=== PATIENT | female | born 1955 | race Caucasian/White ===

== ENCOUNTER 2017-04-21 17:20 | Emergency (ER) | payer OTHER ==
[~2017-04-21] VITALS: Ht 157.5 cm; Wt 69.8 kg
[~2017-04-21 17:20] MED LIST: ADVAIR HFA 1112 UNIT IH; ALEVE220 M1 PO; BENAZEPRIL HCL10 MG PO; BENEFIBER98 GM; BENICAR40 MG PO; COMBIVENT IH; DOXYCYCLINE 10100 M1 PO; DYAZIDE PO; EFFEXOR XR75 MG PO; MAXIDE PO; MEDROLDOSEPACK; MIRALAX255 GM; MUCINEX600 MG PO; NICOTINE TRANSD21 M1 TD; NORCO 5-325 TA1 EACH PO; PREDNISONE 10 M10 M1 PO; ROBITUSSIN ALL118 ML PO; SYMBICORT160 MCG/4. INH; ULTRAM 50MG TAB50 MG PO; VENTOLIN HFA INH8 GM INH; XANAX XR1 MG PO; ZOLOFT100 MG PO
[2017-04-21] MEDS ORDERED: PRIMIDONE50 MG PO (17:46)
[2017-04-21] MEDS ORDERED: BUSPIRONE HCL10 MG PO (17:47)
[2017-04-21] MEDS ORDERED: LIPITOR 20 MG T20 M1 PO (17:48)
[2017-04-21] MEDS ORDERED: ZYPREXA2.5 MG PO (17:48)
[2017-04-21] MEDS ORDERED: ARICEPT10 MG PO (17:49)
[2017-04-21] MEDS ORDERED: SENNA-DOCUSATE1 EACH PO (18:45)
[2017-04-21] MEDS ORDERED: NAPROSYN500 MG PO (18:45)
[2017-04-21] MEDS ORDERED: NORCO 5-325 TA1 EACH PO (18:45)
[2017-04-21 19:00] VITALS: BP 142/92
== END 2017-04-21 19:58 | disposition home or self-care (01) ==
LOC: ER 17:20
DX: S92.332A Displaced fracture of third metatarsal bone, left foot, initial encounter for closed fracture (principal); J44.9 Chronic obstructive pulmonary disease, unspecified; I10 Essential (primary) hypertension; F41.9 Anxiety disorder, unspecified; F32.9 Major depressive disorder, single episode, unspecified; F17.210 Nicotine dependence, cigarettes, uncomplicated; Z88.1 Allergy status to other antibiotic agents; Z90.49 Acquired absence of other specified parts of digestive tract; Z90.89 Acquired absence of other organs; X50.1XXA Overexertion from prolonged static or awkward postures, initial encounter; Y93.89 Activity, other specified; Y92.89 Other specified places as the place of occurrence of the external cause; Y99.8 Other external cause status

== ENCOUNTER 2018-09-17 20:06 | Inpatient (IN) | payer OTHER ==
[~2018-09-17] VITALS: Ht 157.5 cm; Wt 58.6 kg
[~2018-09-17 20:06] MED LIST changes: +ARICEPT10 MG PO; +BUSPIRONE HCL10 MG PO; +LIPITOR 20 MG T20 M1 PO; +NAPROSYN500 MG PO; +PRIMIDONE50 MG PO; +SENNA-DOCUSATE1 EACH PO; +ZYPREXA2.5 MG PO
[2018-09-17 20:08] VITALS: BP 116/76
[2018-09-17 21:14] LABS: CALCIUM 9.2 mg/dL (8.5-10.1); CREATININE 2.1 mg/dL (0.6-1.0)
[2018-09-17 21:20] LABS: POTASSIUM 2.2 mmol/L (3.5-5.1)
[2018-09-17 22:33] LABS: HEMATOCRIT 34.9 % (37.0-47.0); HEMOGLOBIN 11.8 gm/dL (12.0-15.0); MCH 31.1 pg (26.0-34.0); MCHC 33.9 g/dL (28.0-37.0); MCV 91.7 fL (80.0-100.0); RBC 3.8 mil/uL (4.20-5.00); RDW 14.4 % (10.5-14.5); WBC 8.7 thou/uL (4.0-11.0)
[2018-09-17 22:40] VITALS: BP 92/69
--- NOTE | 2018-09-17 22:40 | NUR ---
REPORT IS GIVEN TO CAROLINE ERNANDEZ .
[2018-09-17 23:05] VITALS: BP 96/65
[2018-09-18 01:29] VITALS: BP 112/72
--- NOTE | 2018-09-18 03:21 | NUR ---
new admit for hypokalemia and hypomagnesis. patient having pottassium replaced and magnessium replaced this shift. patient had loose stools this shift. patient ambulates with a cane with steady gaits. patient needs minimum assistance with adl, bed mobility, transfer and toileting. patient had an episode of incontines pericare and barrier cream applied as needed. patient was short of air this shift, new order of breathing treatment and 02 1l. patient denied pain or discomfort. patient had high anxiety prn xanax given. patient in bed asleep at this time breathing regular and unlaboured.
[2018-09-18 04:18] VITALS: BP 112/67
[2018-09-18 08:00] VITALS: BP 108/72
--- NOTE | 2018-09-18 09:02 | EKG ---
[address] [address] ELECTROCARDIOGRAM REPORT Name: NINI ARROYO Room #: 453-P ADM IN M.R.#: [id number] ������������������ Admission: 09/17/18 ������������������ Attend Phys: Teodoro Edwards Discharge: ������������������ Date of : 53 Report #: [id number] ����������������������������������������������������������������� [id number] THIS REPORT FOR: //name// [facility] ED Test Date: 2018-09-17 Test Time: 20:19:55 Pat Name: NINI ARROYO Department: Room: [facility] Gender: F Emergency Communications Officer: MONICA : 1955 Requested By: Tania Wetzel Order Number: [id number] MD: Balta Sierra Measurements Intervals [place] Rate: 87 P: 69 IN: 167 QRS: 43 QRSD: 93 T: 57 QT: 370 QTc: 445 Interpretive Statements Sinus rhythm Nonspecific ST segment abnormalities Compared to ECG 10/15/2015 17:06:27 Atrial abnormality no longer present Electronically Signed On 09-18-2018 9:02:24 CDT by Balta Sierra [email or web address] ��������������������������������������������� <ELECTRONICALLY SIGNED> ���������������������������������������� By: Balta Sierra MD ��������������������������������������������� 09/18/18901 18 18 Balta Sierra MD /OZZY
[2018-09-18 09:06] LABS: CALCIUM 8.7 mg/dL (8.5-10.1); MAGNESIUM 1.4 mg/dL (1.8-2.4)
[2018-09-18 09:08] LABS: POTASSIUM 2.6 mmol/L (3.5-5.1)
[2018-09-18 15:00] VITALS: BP 100/58
--- NOTE | 2018-09-18 18:44 | NUR ---
Assumed care of patient at 0700. Patient awake in bed, c/o IV pain with potassium infusion. Rate slowed, no other concerns. On/off 2L NC for desats with activity. Up to bathroom several times with urinary urgency, loose stools. Electrolytes replaced as ordered. CT abd/pelvis completed. Continue to monitor.
[2018-09-18 20:03] LABS: MAGNESIUM 3.3 mg/dL (1.8-2.4); POTASSIUM 3.1 mmol/L (3.5-5.1)
[2018-09-18 20:12] VITALS: BP 115/56
[2018-09-19 03:45] VITALS: BP 117/78
[2018-09-19 04:54] LABS: HEMATOCRIT 31.6 % (37.0-47.0); HEMOGLOBIN 10.5 gm/dL (12.0-15.0); MCH 31.1 pg (26.0-34.0); MCHC 33.2 g/dL (28.0-37.0); MCV 93.5 fL (80.0-100.0); RBC 3.38 mil/uL (4.20-5.00); RDW 14.7 % (10.5-14.5); WBC 8.1 thou/uL (4.0-11.0)
[2018-09-19 05:11] LABS: ALBUMIN 2.6 g/dL (3.4-5.0); CALCIUM 8.6 mg/dL (8.5-10.1); CREATININE 1.8 mg/dL (0.6-1.0); POTASSIUM 3.2 mmol/L (3.5-5.1); TOTAL BILIRUBIN 0.2 mg/dL (<0.1-1.0); TOTAL PROTEIN 5.1 g/dL (6.4-8.2)
--- NOTE | 2018-09-19 06:10 | NUR ---
PATIENT IS AOX4 AND WAS ABLE TO GET SOME SLEEP THIS SHIFT. PT WALKED TO THE BATHROOM SEVERAL TIMES AND HAS STEADY GAIT. PATIENT'S K+ IS STILL BEING REPLACED. PATIENT IS PROGRESSING TOWARDS DISCHARGE GOALS.
[2018-09-19 07:20] VITALS: BP 103/59
--- NOTE | 2018-09-19 12:55 | CRIT ---
[facility] [place] [address] CRITICAL CARE NOTE Name: NINI ARROYO Room #: 453-P ADM IN M.R.#: [id number] Admission: 09/17/18 ������������������ Attend Phys: Teodoro Edwards Discharge: ������������������ Date of : 53 Report #: [id number] THIS REPORT FOR: //name// CC: Robbi Edwards DATE OF SERVICE: 09/18/2018 GI CONSULT: HISTORY OF PRESENT ILLNESS: The patient is a very pleasant 63-year-old female whom I have been asked to see for further evaluation because of 3 weeks of dyspepsia, nausea and vomiting, epigastric pain, and black stools intermittently. She denies dysphagia. She has no problem swallowing or pain when she swallows. She denies gastroesophageal reflux symptoms. She denies other GI symptoms except for some mild epigastric pain. Her medical history is well outlined in the chart, but includes hypertension, COPD, depression, anxiety. MEDICATION: Her medication list is also listed which includes albuterol, Xanax, Lotensin, Zoloft, Symbicort, primidone, buspirone, Lipitor, Zyprexa, Aricept. She has had medical history consistent with cholecystectomy, appendectomy, hypertension, anxiety, COPD, depression. She denies significant alcohol consumption currently, but did drink prior to 5 years ago. She smokes a pack a day for 50 years, currently and is currently smoking. FAMILY HISTORY: Negative for inflammatory bowel disease or colon cancer. REVIEW OF SYSTEMS: Negative for weight loss, weakness or fatigue. She denies head, eyes, ears, nose or throat complaints. She denies chest pain, chest palpitation, chest pressure, cough, shortness of breath, wheezing, genitourinary, musculoskeletal or neuropsychiatric complaints beyond that mentioned above. PHYSICAL EXAMINATION: GENERAL: The patient is afebrile. VITAL SIGNS: Stable. HEENT: Nonicteric. NECK: No JVD, thyromegaly or bruits. CARDIOVASCULAR: Regular. LUNGS: Clear anteriorly, but diminished. ABDOMEN: Soft, nondistended, nontender. Some mild epigastric discomfort to deep palpation. No Zapata sign. No stigmata of chronic liver disease. No abnormal masses or bruits. EXTREMITIES: Deferred. [address] [address] CRITICAL CARE NOTE Name: NINI ARROYO TABATAH Room #: [facility] IN .R.#: [id number] Admission: 09/17/18 ������������������ Attend Phys: Teodoro Edwards Discharge: ������������������ Date of : 53 Report #: [id number] NEUROLOGIC: Deferred. RECTAL: Deferred. PERTINENT LABORATORY DATA: Include hemoglobin 11.8, MCV 91.7, RDW of 14.4, platelet count 176. White count 8.7. Chemistry notable for sodium 141, potassium 2.2, creatinine 2.1, magnesium 1.5, glucose 105. X-ray reveals, pending CT scan of the abdomen and pelvis. In summary, the patient has mild anemia, dyspepsia, nausea and vomiting, which all may be compatible with gastritis or peptic ulcer disease. Other considerations include gastric dysmotility or malignancy. PLAN: We will proceed with CT of the abdomen and pelvis and upper endoscopy electively probably on Thursday. I appreciate the opportunity to participate in her care. At this point, I would continue full liquid diet and advance only as tolerated. ��������������������������������������������� <ELECTRONICALLY SIGNED> ���������������������������������������� By: Stuart Robbins MD ��������������������������������������������� 09/19/18 1255 1031 0505 Stuart Robbins MD /nt
[2018-09-19 15:11] VITALS: BP 104/56
--- NOTE | 2018-09-19 17:16 | NUR ---
PT A&OX4, VSS, NO SIGNS OF DISTRESS, DENIES PAIN. PT HAS BEEN RESTING IN BED, CALL LIGHT WITHIN REACH, BED IN LOWEST POSITION. PT IS SCHEDULED FOR EGD 09/20/18. WILL CONTINUE TO MONITOR.
[2018-09-19 19:32] VITALS: BP 107/71
--- NOTE | 2018-09-20 04:04 | NUR ---
PATIENT IS ALERT AND ORIENTED X 4 AND WAS ABLE TO GET SOME SLEEP THIS SHIFT. PATIENT HAD NO COMPLAINTS THIS SHIFT. PT HAD FREQUENT TRIPS TO THE BATHROOM. GAIT WAS STEADY WITH SB ASSIST. PATIENT CALLS FOR HELP NEEDED. PATIENT IS PROGRESSING TOWARDS DISCHARGE GOALS.
[2018-09-20 04:11] LABS: HEMATOCRIT 30.9 % (37.0-47.0); HEMOGLOBIN 10.2 gm/dL (12.0-15.0); MCH 31.2 pg (26.0-34.0); MCHC 33.2 g/dL (28.0-37.0); MCV 94.2 fL (80.0-100.0); RBC 3.28 mil/uL (4.20-5.00); RDW 14.9 % (10.5-14.5); WBC 7.1 thou/uL (4.0-11.0)
[2018-09-20 04:23] LABS: ALBUMIN 2.5 g/dL (3.4-5.0); CALCIUM 8.5 mg/dL (8.5-10.1); CREATININE 1.7 mg/dL (0.6-1.0); POTASSIUM 3.4 mmol/L (3.5-5.1); TOTAL BILIRUBIN 0.2 mg/dL (<0.1-1.0); TOTAL PROTEIN 4.5 g/dL (6.4-8.2)
[2018-09-20 04:48] VITALS: BP 133/67
[2018-09-20 08:00] VITALS: BP 145/79
[2018-09-20 12:00] VITALS: BP 131/69
--- NOTE | 2018-09-20 14:34 | NUR ---
PT ADMITTED RELATED TOHYPOKALEMIA, HYPOMAGNES,ALEXANDR. CM REVIEWED CHART AND SPOKE WITH CARE TEAM. CM MET WITH PT AT BEDSIDE THIS DAY. PT IS A&O X4. CM ROLE INTRODUCED. PT INDICATED SHE LIVES IN A HOUSE WITH HER SPOUSE WITH 5 STEPS TO ENTER AND 6 STEPS INSIDE. 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 PT INDICATED SHE HAD USED A CANE TO ASSIST WITH MOBILITY AUTO HAULER. PT INDICATED SHE ANTICIPATES RETURNING HOME ONCE MEDICALLY STABLE. CM TO FOLLOW INDICATED WITH DC PLANNING.
[2018-09-20] MEDS ORDERED: FLORANEX GRANU1 EACH PO (14:50)
[2018-09-20] MEDS ORDERED: NICOTINE TRANSD21 M1 TRANSDERM (14:50)
[2018-09-20] MEDS ORDERED: ACETAMINOPHEN325 M1 PO (14:50)
[2018-09-20 16:32] VITALS: BP 131/69
--- NOTE | 2018-09-20 16:43 | NUR ---
ASSUMED CARE 0700. DENIES PAIN, VSS, EGD COMPLETED TODAY. DISCHARGE HOME TODAY.
--- NOTE | 2018-09-21 16:06 | PATH ---
[facility] [address] [place] [address] PATHOLOGY RPT PROCEDURE Name: JENRAJNINIMONICA MAYS Room #: 453-P DIS IN M.R.#: [id number] ������������������ Admission: 09/17/18 ������������������ Date of : 53 Discharge: 09/20/18 Report #: [id number] Path Case #: [id number] [facility] Accession Number: [id number] . 01 Material submitted: . stomach - BX STOMACH . 01 Clinical history: . Pre-OP DX: Abdominal pain, nausea with vomiting, dysphagia Post-OP DX: Schatzki's ring, hiatal hernia, gastritis . 02 Diagnosis: Gastric mucosa, stomach, endoscopic biopsy: - Mild reactive gastropathy. - Negative for intestinal metaplasia or atrophy. - Negative for Helicobacter pylori (properly controlled immunohistochemical stain performed). (IUV:omar; 09/21/2018) MBBrent/09/21/2018 . 02 Electronically signed: . Swetha Marcus MD, Pathologist NPI- [id number] . 01 Gross description: . Received in formalin labeled "Nini Rios, BX stomach," are 5 segments of vargas soft tissue measuring 1.2 x 0.9 x 0.3 cm in aggregate dimensions and ranging from 0.2 to 0.4 cm in maximum dimension. The specimen is submitted entirely in cassette A1. (TSD; 09/20/2018) TOB/TOB . 02 Pathologist provided ICD-10: K31.9 . 02 CPT . 670828, M82620 Specimen Comment: A courtesy copy of this report has been sent to Specimen Comment: [phone], , . Specimen Comment: Report sent to ,DR REECE / DR WATERS Performed at: [address], [place], [place] [id number] MD Ganesh Feliciano MD Phone: [phone] Performed at: [address] [id number] [address] [address] PATHOLOGY RPT PROCEDURE Name: KATELYNN RIOSMONICA MAYS Room #: 453-P DIS IN M.R.#: [id number] ������������������ Admission: 09/17/18 ������������������ Date of : 53 Discharge: 09/20/18 Report #: [id number] Path Case #: [id number] MD Swetha Marcus MD Phone: [phone]
--- NOTE | 2018-09-21 16:19 | P ---
[facility] [place] [address] PROCEDURE REPORT Name: NINI ARROYO Room #: 453-P [facility] IN M.R.#: [id number] Admission: 09/17/18 ������������������ Attend Phys: Teodoro Edwards Discharge: 09/20/18 ������������������ Date of : 53 Report #: [id number] THIS REPORT FOR: //name// CC: Robbi Romero DO Teodoro Edwards INPATIENT UPPER ENDOSCOPY BRIEF HISTORY: The patient is a 63-year-old woman who was admitted with nausea, vomiting, epigastric pain, solid food dysphagia and inability to eat with hypokalemia and acute kidney injury. PREOPERATIVE DIAGNOSES: Abdominal pain, nausea, vomiting and dysphagia. POSTOPERATIVE DIAGNOSES: 1. Moderate erythematous antral gastritis. 2. Small 2-cm sliding-type hiatus hernia. 3. Schatzki ring. MEDICATIONS: Deep sedation with propofol per anesthesia. SPECIMEN: Biopsies of gastritis. ESTIMATED BLOOD LOSS: 3 mL. PROCEDURE: EGD with biopsy and Magaña dilation. FINDINGS: Prior to propofol sedation, the procedure of upper endoscopy and dilation was discussed with the patient as well as potential risks and its complications. She indicates she understands and desires to proceed. DESCRIPTION OF PROCEDURE: With the patient in the left lateral decubitus position, the Olympus video endoscope was inserted in the cervical esophagus under direct vision without difficulty. Examination of this organ through its entire length revealed normal esophageal mucosa down to the squamocolumnar junction. The squamocolumnar junction was inspected. A small 2-cm sliding-type hiatus hernia was seen. The mucosa in the hernia was unremarkable. In addition, intermittently, a mild Schatzki ring was seen. There was no evidence of tight stricturing or mass lesions of the esophagus. The scope was advanced fully into the stomach, which was examined on end view as well as retroflexed views. There was a pattern of a diffuse gastritis. No ulcers or erosions were seen. No mass lesions were seen. Upon retroflexion, the small hiatus hernia was seen. No mass lesions were seen. The mucosa in the proximal stomach was normal. The scope was advanced across the pylorus, which was normal. The scope was advanced to full length down the duodenal sweep and actually across the ligament of Treitz and into the first segment into the jejunum which was normal. [address] [address] PROCEDURE REPORT Name: NINI ARROYO Room #: 453-P [facility] IN M.R.#: [id number] Admission: 09/17/18 ������������������ Attend Phys: Teodoro Edwards Discharge: 09/20/18 ������������������ Date of : 53 Report #: [id number] At that point, scope was slowly withdrawn and careful circumferential views were obtained. Upon withdrawal of the scope, we got good views of both the major duodenal papilla and the minor papilla; both were normal. Scope was withdrawn. The patient tolerated the procedure well. Due to the findings of a ring and her complaints of dysphagia, she was dilated with passage of a 50-Chinese Magaña dilator. There was no resistance with passage of the dilator. The patient tolerated the procedure well. DISPOSITION: The patient with several weeks of nausea, vomiting, solid food dysphagia and epigastric pain with minimal endoscopic findings. I do not see significant peptic mucosal disease. There is no evidence of neoplastic disease. She did report she also had some diarrhea and she may have had an acute gastroenteritis which has resolved, with sequelae of above-mentioned symptoms persisting. At this point, we would treat symptomatically. As noted, her CT was nondiagnostic. PPI will be reasonable. Zofran for nausea and vomiting would be reasonable. We will advance diet at this time. Discharge when nausea and vomiting are controlled and eating well would be reasonable from a GI standpoint. ��������������������������������������������� <ELECTRONICALLY SIGNED> ���������������������������������������� By: Brandon Antonio MD ��������������������������������������������� 09/21/18 1619 1045 2332 Brandon Antonio MD /nt
== END 2018-09-20 18:23 | disposition home or self-care (01) | DRG 684 ==
LOC: ER 20:06 → EROBS 21:51 → 4W 21:51 → ENTRNSPT 09-20 17:11 → 4W 09-20 18:23
PROVIDERS: Hospitalist; Nurse Practitioner Family; Physician Assistant; ADMIT Hospitalist
PROC: 0DB68ZX Excision of Stomach, Via Natural or Artificial Opening Endoscopic, Diagnostic (ICD-10-PCS; principal; 2018-09-20)
PROC: 0D758ZZ Dilation of Esophagus, Via Natural or Artificial Opening Endoscopic (ICD-10-PCS; principal; 2018-09-20)
DX: N17.0 Acute kidney failure with tubular necrosis (principal); E87.6 Hypokalemia; I10 Essential (primary) hypertension; J44.9 Chronic obstructive pulmonary disease, unspecified; F41.9 Anxiety disorder, unspecified; F32.9 Major depressive disorder, single episode, unspecified; K29.70 Gastritis, unspecified, without bleeding; K44.9 Diaphragmatic hernia without obstruction or gangrene; K22.2 Esophageal obstruction; E83.42 Hypomagnesemia; F17.210 Nicotine dependence, cigarettes, uncomplicated; Z90.49 Acquired absence of other specified parts of digestive tract; Z79.899 Other long term (current) drug therapy; Z71.6 Tobacco abuse counseling; Z88.8 Allergy status to other drugs, medicaments and biological substances
CPT/HCPCS: 10045; 62110; 62900; 70005

== ENCOUNTER 2019-02-26 16:49 | Inpatient (IN) | payer OTHER ==
[~2019-02-26] VITALS: Ht 154.9 cm; Wt 54.4 kg
[~2019-02-26 16:49] MED LIST changes: +ACETAMINOPHEN325 M1 PO; +FLORANEX GRANU1 EACH PO; +NICOTINE TRANSD21 M1 TRANSDERM
[2019-02-26 16:58] VITALS: BP 133/79
[2019-02-26] MEDS ORDERED: KLOR-CON 1010 MEQ PO (17:07)
[2019-02-26] MEDS ORDERED: MAGOX 400400 MG PO (17:07)
[2019-02-26 17:19] LABS: ABSOLUTE NEUTROPHILS 10.5 thou/uL (1.4-8.2); BASOPHILS 0.4 % (0.0-2.0); EOSINOPHILS 0.7 % (0.0-3.0); HEMATOCRIT 30.7 % (37.0-47.0); HEMOGLOBIN 10.2 gm/dL (12.0-15.0); LYMPHOCYTES 13.5 % (24.0-44.0); MCH 32.1 pg (26.0-34.0); MCHC 33.2 g/dL (28.0-37.0); MCV 96.7 fL (80.0-100.0); MONOCYTES 4.1 % (1.0-8.0); PLATELET COUNT 300 thou/uL (150-400); POLYS 81.3 % (36.0-66.0); RBC 3.18 mil/uL (4.20-5.00); RDW 14.7 % (10.5-14.5); WBC 12.9 thou/uL (4.0-11.0)
[2019-02-26 17:39] LABS: ANION GAP 15 mmol/L (7-16); BUN 17 mg/dL (7-18); CALCIUM 8.5 mg/dL (8.5-10.1); CHLORIDE 104 mmol/L (98-107); CO2 20 mmol/L (21-32); CREATININE 3.7 mg/dL (0.6-1.0); GLUCOSE 107 mg/dL (74-106); MAGNESIUM 1.5 mg/dL (1.8-2.4); SODIUM 139 mmol/L (136-145); TROPONIN-I <0.06 ng/mL (<0.06)
--- NOTE | 2019-02-26 18:06 | EKG ---
[address] [address] ELECTROCARDIOGRAM REPORT Name: NINI ARROYO Room #: 170-9 ADM IN M.R.#: [id number] Admission: 02/26/19 Attend Phys: Teodoro Edwards Discharge: Date of : 53 Report #: [id number] THIS REPORT FOR: //name// [facility] ED Test Date: 2019-02-26 Test Time: 17:12:39 Pat Name: NINI ARROYO Department: Room: 170 Gender: F Mortar Carrier: kyaw : 1955 Requested By: Edwin Tilley Order Number: [id number] MD: Jair Ryan Measurements Intervals [place] Rate: 93 P: 63 ND: 153 QRS: 33 QRSD: 96 T: 23 QT: 365 QTc: 454 Interpretive Statements Sinus rhythm Probable left atrial enlargement Borderline T wave abnormalities Compared to ECG 09/17/2018 20:19:55 T-wave abnormality now present Electronically Signed On 02-26-2019 18:06:24 CDT by Jair Ryan [email or web address] <ELECTRONICALLY SIGNED> By: Jair Ryan MD 02/26/19 1806 171 171 Jair Ryan MD /OZZY
[2019-02-26 18:09] VITALS: BP 133/79
[2019-02-26 20:10] VITALS: BP 140/81
[2019-02-27 04:25] VITALS: BP 117/60
--- NOTE | 2019-02-27 04:50 | NUR ---
PATIENT ADMITTED FOR FREQUENT FALLS, AND HPOKALEMIA. PATIENT AOX4 MAKES NEEDS KNOWN. SCD ON. PATIENT REFUSED LEVONOX SQ. PATIENT AMBULATES SLOWLY TO THE BATHROOM WITH STEADY GAITS. POTASSIUM REPLACED THIS SHIFT X2 PATIENT REQUESTED SLOW INFUSION D/T POTTASSIUM BURNING HER VEINS. PATIENT CALM AND COOPERATIVE WITH CARE AND COOPERATIVE WITH MEDS AND CARE. PATIENT WAS ANXIOUS THIS SHIFT, PRN XANAX GIVEN PER ORDER.FALL PRECAUTION IN PLACE. PATIENT IN BED ASLEEP AT THIS TIME BREATHING REGULAR AND UNLABOURED.
[2019-02-27 05:07] LABS: ALBUMIN 2.2 g/dL (3.4-5.0); CALCIUM 7.7 mg/dL (8.5-10.1); CREATININE 3.5 mg/dL (0.6-1.0); MAGNESIUM 2.1 mg/dL (1.8-2.4); PHOSPHORUS 3.9 mg/dL (2.5-4.9)
[2019-02-27 05:11] LABS: POTASSIUM 2.1 mmol/L (3.5-5.1)
[2019-02-27 09:05] VITALS: BP 133/69
--- NOTE | 2019-02-27 16:09 | NUR ---
PT ASSESSED AT START OF SHIFT. PT VERY WEAK. UP USING WALKER W/ MOD ASSIST. VERY POOR APPETITE-NEEDS ENC TO ORDER HER MEALS. HAD SOFT BM. REC'D 2 BAGS IV POTASSIUM THIS AM. IV FLUIDS INFUSING. REQUESTING HOME MEDS AND NICOTINE PATCH-CALL IN TO DOCTOR.
[2019-02-27 17:45] VITALS: BP 138/61
[2019-02-27 20:00] VITALS: BP 133/70
[2019-02-27 23:10] LABS: URINE BILIRUBIN NEGATIVE (Negative); URINE BLOOD 3+ (Negative); URINE CLARITY CLEAR; URINE COLOR YELLOW; URINE GLUCOSE-RANDOM* NEGATIVE (Negative); URINE KETONES NEGATIVE (Negative); URINE LEUKOCYTES-REFLEX NEGATIVE (Negative); URINE NITRITE-REFLEX NEGATIVE (Negative); URINE PROTEIN (DIPSTICK) 1+ (Negative); URINE SPECIFIC GRAVITY <= 1.005 (1.005-1.035); URINE UROBILINOGEN 0.2 E.U./dl (0.2-1.0)
[2019-02-27 23:24] LABS: CASTS None Seen /LPF (None Seen); MUCUS None Seen strn/LPF (None Seen); SQUAMOUS 4-10 Moderate /LPF (0-3); URINE RBC 0-2 Rare /HPF (0-2); URINE WBC-REFLEX 0-5 Rare /HPF (0-5)
[2019-02-27 23:25] LABS: CRYSTALS None Seen /LPF (None Seen); YEAST-REFLEX Present (None Seen)
--- NOTE | 2019-02-28 03:59 | NUR ---
ASSUMED CARE OF PT @1900 PT ASSESSED AT START OF SHIFT. UP WITH ASSISTX1 TO THE BATHROOM REQUIRES EXTRA TIME. C/O NAUSEA, EMESIS NOTED AND ZOFRAN GIVEN. HAS POOR APPETITE. URINE CULTURE COLLECTED AND SENT TO HE LAB. AMBIEN GIVEN FOR THE NIGHT. FALL PREC IN PLACE AND CALLS TO LET NEEDS KNOWN WILL CONT WITH POC TILL EOS
[2019-02-28 05:01] VITALS: BP 102/60
[2019-02-28 05:31] LABS: ALBUMIN 2.2 g/dL (3.4-5.0); CALCIUM 7.7 mg/dL (8.5-10.1); CREATININE 3.1 mg/dL (0.6-1.0); PHOSPHORUS 4.7 mg/dL (2.5-4.9)
[2019-02-28 05:42] LABS: POTASSIUM 2.8 mmol/L (3.5-5.1)
[2019-02-28 07:39] VITALS: BP 122/68
--- NOTE | 2019-02-28 17:19 | NUR ---
ASSESSMENT-PT LIVES AT HOME ALONE. HER IS AT [facility] AND HOME. SHE HAS HER DTR MOISÉS WHO LIVES IN AND ANOTHER DTR SUJEY LIVES IN [place] WITH HER DAD. PT HAS BEEN USING A CANE OR A ROLLLER WALKER TO GET AROUND. SHE DOES HER OWN ADLS. SHE DRIVES. SHE HAS A CLEANING PERSON THAT COMES EVERY 2 WEEKS. PT SAYS SHE NORMALLY DOES HER OWN LAUNDRY BUT HAS NOT DONE ANY FOR THE LAST WEEK. PT HAD SERVICES HER LAST ADM. BUT CANNOT REMEMBER THE NAME OF THE AGENCY. PT HAS NOT BEEN TO REHAB. DTR WILL HELP WITH GETTING HER GROCERIES. PT GIVES PERMISSION TO S/W DTR MOISÉS. FOLLOWING TO ASSIST WITH DC PLANNING. THERAPIES ARE ORDERED.
[2019-02-28 19:45] VITALS: BP 135/71
--- NOTE | 2019-02-28 20:16 | NUR ---
ASSUMED CARE AT 0700, SHIFT ASSESSMENT DONE, MEDS GIVEN, VSS. DENIES PAIN, REPORTED NAUSEA, PRN NAUSEA MEDS GIVEN. RECEIVING IV FLUIDS. WILL CONTINUE TO ASSESS AND ASSIST WITH ADLs NEEDED.
--- NOTE | 2019-03-01 01:54 | NUR ---
ASSUMED CARE OF PT @1900 PT ASSESSED AT START OF SHIFT, A&OX4 FOR THIS NURSE DENIES PAIN. NICOTINE PATCH INTACT ON RT ARM. UP WITH ASSISTX1 TO THE BSC. SLIGHT WEAKNESS NOTED. FALL PREC IN PLACE. PT REFUSED LOVENOX SHOT TONIGHT. SCD'S PLACED ON BOTH EXT. IV IN LFT AC CAME OUT AND NEW IV IN PLACE IN RH. CALLS AND LETS NEEDS KNOWN WILL CONT WITH POC TILL EOS.
[2019-03-01 04:00] VITALS: BP 133/62
[2019-03-01 05:34] LABS: ALBUMIN 2.2 g/dL (3.4-5.0); CALCIUM 8.2 mg/dL (8.5-10.1); CREATININE 2.9 mg/dL (0.6-1.0); PHOSPHORUS 4.1 mg/dL (2.5-4.9); POTASSIUM 3.1 mmol/L (3.5-5.1)
[2019-03-01 07:16] VITALS: BP 117/58
[2019-03-01 11:22] LABS: TSH 2.999 uIU/mL (0.358-3.740)
--- NOTE | 2019-03-01 17:36 | NUR ---
GAVE DIE BARBER LIST & SHE IS INTERESTED IN [facility], AND [facility]. ASKED DC WIRE COILER MACHINE OPERATOR TO FAX REFERRALS. S/W PT'S DTR MOISÉS BY PHONE AND SHE WILL PLAN TO TOUR FACILITIES SOON WE HAVE AN ACCEPTING FACILITY.
--- NOTE | 2019-03-01 17:48 | NUR ---
FAXED REFERRAL TO [facility] SPOKE WITH SRAVANI IN ADM SHE CAN ACCEPT. FAXED REFERRAL TO [facility] RECEIVED CONFIRMATION AND WILL F/U IN AM. FAXED REFERRAL TO [facility] RECEIVED CONFIRMATION AND WILL F/U WITH FACILITY IN THE AM. FAMILY TO TOUR FACILITIES TOMORROW.
[2019-03-01 19:05] VITALS: BP 127/65
--- NOTE | 2019-03-01 19:55 | NUR ---
Assumed patient care at 0715. Patients vital signs have been stable throughout this shift. Her appetite has been poor but she has had good fluid intake. Patient has Majic Cup supplements ordered; she has been refusing them, stating "they taste horrible!" Patient complained of a headache this afternoon, Tylenol was given with partial relief. Will continue to monitor.
[2019-03-02 03:50] VITALS: BP 133/62
[2019-03-02 05:43] LABS: ALBUMIN 2.1 g/dL (3.4-5.0); CALCIUM 7.8 mg/dL (8.5-10.1); CREATININE 2.8 mg/dL (0.6-1.0); PHOSPHORUS 3.6 mg/dL (2.5-4.9); POTASSIUM 3.2 mmol/L (3.5-5.1)
[2019-03-02 07:55] VITALS: BP 137/72
[2019-03-02] MEDS ORDERED: ALPRAZOLAM 0.50.5 M1 PO (09:38)
[2019-03-02 14:45] VITALS: BP 145/71
--- NOTE | 2019-03-02 14:59 | NUR ---
Rounding Machine Tender spoke with pt's dtr Malou midday and she confirmed SNF preference for [facility]. They have accepted the pt and submitted for auth. Auth rec'd this afternoon. Dc party planner to fax final orders and arrange w/c van transport time and update all parties. Chart copy is ready to be sent with the pt.
--- NOTE | 2019-03-02 16:22 | NUR ---
JUST SPOKE WITH SRAVANI IN ADM AT [facility] AND NOW SHE SAID [facility] IS PENDING FAXED TODAY'S THERAPY NOTES AND PROG. NOTES. DP TO FOLLOW.
[2019-03-02 19:20] VITALS: BP 136/66
--- NOTE | 2019-03-02 19:43 | NUR ---
ASSUMED CARE OF PT AT 0700. DISCHARGE ORDERS IN SYSTEM BUT AWAITING AUTHORIZATION FROM INSURANCE. PT HAS PINK EYES IN BOTH EYES DOCTOR ORDERED CORTISPORIN OINTMENT AND WAS APPLIED TO PT. SCDS IN PLACE. NICOTENE PATCH APPLIED TO PTS RIGHT ARM. PT IS VERY WEAK AND UNSTEADY ON HER FEET. APPETITE IS VERY POOR, HAS ONLY BEEN CONSUMING FLUIDS. PT FREQUENTLY USES BEDSIDE COMMODE. LBM TODAY. FALL PRECAUTIONS IN PLACE. BED IN LOW POSITION AND CALL LIGHT WITHIN REACH. GAVE REPORT TO NOC NURSE.
--- NOTE | 2019-03-03 02:48 | NUR ---
ASSUMED CARE OF PT @1900 PT ASSESSED AT START OF SHIFT. NO IV ASSESS REFUSED TO BE STUCK AGAIN AFTER X2 ATTEMPT FROM DAY NURSE. THIS NURSE INFORMED PT ABT THE IMPORTANT PT STATED TO LET DR KNOW SHE REFUSED. INFORMED CHARGED NURSE PT ALSO REFUSED HER FROM STICKING. CALLED ONCALL SUPERVISOR COREMAKER AND NOTIFIED HER. STATED TO PUT IN ORDER FOR BNP IN THE MORNING DUE TO CRTN AND IV TEAM CAN ACESS AGAIN IN THE MORNING. PT VERY WEAK UP WITH ASSISTX1 TO BSC. APPLIED OINTMENT IN EYE EVERY 3HRS DUE TO PINK EYE. FALL PREC IN PLACE AND CALL LIGHT WITHIN REACH WILL CONT WITH POC TILL EOS.
[2019-03-03] MEDS ORDERED: CEFUROXIME250 MG PO (09:29)
[2019-03-03] MEDS ORDERED: NEOMYCIN/BACIT3.5 G1 OPHTHALMIC (09:29)
[2019-03-03 09:53] LABS: CALCIUM 8.4 mg/dL (8.5-10.1); CREATININE 2.8 mg/dL (0.6-1.0); POTASSIUM 3.4 mmol/L (3.5-5.1)
--- NOTE | 2019-03-03 13:22 | NUR ---
PT DISCHARGING TODAY TO [facility] FAXED DC ORDERS/SUMMARY TO FACILITY SPOKE WITH SRAVANI IN ADM SHE RECEIVED DC ORDERS AND ARRANGED TRANSPORT BY [facility] FOR 1400 TODAY. NOTIFIED PT'S DTR (MOISÉS) OF DC AND TIME OF TRANSPORT AND SHE WILL MEET PT AT FACILITY. NOTIFIED UNIT AND CHART COPY PER US. RN TO CALL REPORT TO [phone].
--- NOTE | 2019-03-03 13:42 | NUR ---
ASSUMED CARE OF PT AT 0700. REMOVED IV ON 03/02. PT REFUSED IV INSERTION WITH NOC NURSE. PTS CO2 LAB VALUE WAS 9 (CRITICAL). CONTACT DR. WATERS AND GAVE CRITICAL RESULTS. ALSO EXPLAINED THE PTS REFUSAL OF IV INSERTION. PTS EYES ARE CLEAR AND OITMENT WAS APPLIED. PT ATE 100% OF BREAFAST AND REFUSED LUNCH. PT ABLE TO AMBULATE AND PIVOT TO BEDSIDE COMMODE WITH IMPROVEMENT IN MOVEMENT. FALL PRECAUTIONS IN PLACE. PT IS IN CHAIR WITH CHAIR ALARM ON AND CALL LIGHT WITHIN REACH. WILL CONTINUE TO MONITOR PT UNTIL TRANSPORTATION COMES FOR DISCHARGE. DISCHARGED TO REHAB FACILITY.
== END 2019-03-03 14:00 | DRG 682 ==
LOC: ER 16:49 → 4E 17:57 → EROBS 17:57 → 4E 18:17 → 4S 03-02 13:30
PROVIDERS: Emergency Medicine; ADMIT Hospitalist
DX: N17.9 Acute kidney failure, unspecified (principal); E43 Unspecified severe protein-calorie malnutrition; N39.0 Urinary tract infection, site not specified; E87.6 Hypokalemia; E83.42 Hypomagnesemia; J44.9 Chronic obstructive pulmonary disease, unspecified; I10 Essential (primary) hypertension; F41.9 Anxiety disorder, unspecified; F32.9 Major depressive disorder, single episode, unspecified; F17.210 Nicotine dependence, cigarettes, uncomplicated; B96.20 Unspecified Escherichia coli [E. coli] as the cause of diseases classified elsewhere; Z90.49 Acquired absence of other specified parts of digestive tract; Z88.8 Allergy status to other drugs, medicaments and biological substances; Z68.22 Body mass index [BMI] 22.0-22.9, adult; Z79.899 Other long term (current) drug therapy
CPT/HCPCS: 10084; 10183; 10195

== ENCOUNTER → 2020-12-27 | Outpatient (CLI) | payer OTHER ==
[~2020-12-27] MED LIST changes: +ALPRAZOLAM 0.50.5 M1 PO; +CEFUROXIME250 MG PO; +KLOR-CON 1010 MEQ PO; +MAGOX 400400 MG PO; +NEOMYCIN/BACIT3.5 G1 OPHTHALMIC
== END ==
LOC: MRI 12-21 11:53
PROVIDERS: ATTEND Psychiatry & Neurology Neuromuscular Medicine
DX: G93.89 Other specified disorders of brain (principal); G43.011 Migraine without aura, intractable, with status migrainosus

== ENCOUNTER 2021-03-01 15:27 | Emergency (ER) | payer OTHER ==
[~2021-03-01] VITALS: Ht 157.5 cm; Wt 46.7 kg
[2021-03-01 16:05] LABS: ABSOLUTE NEUTROPHILS 9.1 thou/uL (1.4-8.2); BASOPHILS 0.5 % (0.0-2.0); EOSINOPHILS 0.7 % (0.0-3.0); HEMATOCRIT 43.5 % (37.0-47.0); LYMPHOCYTES 18.2 % (24.0-44.0); MCH 30.1 pg (26.0-34.0); MCHC 32.2 g/dL (28.0-37.0); MCV 93.6 fL (80.0-100.0); MONOCYTES 4.3 % (1.0-8.0); PLATELET COUNT 206 thou/uL (150-400); POLYS 76.3 % (36.0-66.0); RBC 4.65 mil/uL (4.20-5.00); RDW 14.7 % (10.5-14.5); WBC 11.9 thou/uL (4.0-11.0)
[2021-03-01 16:19] LABS: ANION GAP 9 mmol/L (7-16); BUN 14 mg/dL (7-18); CALCIUM 7.1 mg/dL (8.5-10.1); CHLORIDE 111 mmol/L (98-107); CO2 22 mmol/L (21-32); GLUCOSE 128 mg/dL (74-106); POTASSIUM 3.5 mmol/L (3.5-5.1); SODIUM 142 mmol/L (136-145)
[2021-03-01 16:34] LABS: ALBUMIN 2.6 g/dL (3.4-5.0); DIRECT BILIRUBIN < 0.1 mg/dL (<0.1-0.2); SGOT 53 U/L (15-37); SGPT 31 U/L (14-59); TOTAL BILIRUBIN 0.3 mg/dL (0.2-1.0); TOTAL PROTEIN 4.8 g/dL (6.4-8.2)
[2021-03-01 17:47] LABS: URINE BILIRUBIN NEGATIVE (Negative); URINE BLOOD 3+ (Negative); URINE CLARITY CLEAR; URINE COLOR YELLOW; URINE GLUCOSE-RANDOM* NEGATIVE (Negative); URINE KETONES NEGATIVE (Negative); URINE LEUKOCYTES-REFLEX NEGATIVE (Negative); URINE NITRITE-REFLEX NEGATIVE (Negative); URINE PROTEIN (DIPSTICK) TRACE (Negative); URINE SPECIFIC GRAVITY <= 1.005 (1.005-1.035); URINE UROBILINOGEN 0.2 E.U./dl (0.2-1.0)
[2021-03-01 17:52] LABS: SQUAMOUS 0-3 Few /LPF (0-3); URINE WBC-REFLEX 0-5 Rare /HPF (0-5)
[2021-03-01 17:53] LABS: BACTERIA-REFLEX 1-9 Few /HPF (None Seen); CASTS None Seen /LPF (None Seen); CRYSTALS None Seen /LPF (None Seen); URINE RBC 3-10 Few /HPF (NONE SEEN)
[2021-03-01 21:38] VITALS: BP 124/67
--- NOTE | 2021-03-02 12:59 | EKG ---
[place] [address] [facility] [place] [address] ELECTROCARDIOGRAM REPORT Name: NINI ARROYO [id number] Admission: 03/01/21 Attend Phys: Discharge: 03/01/21 Date of : 53 Report #: [id number] [facility] ED Test Date: 2021-03-01 Test Time: 15:29:36 Pat Name: NINI ARROYO Department: Room: Gender: F Manager Drug Safety: ROHITH : 1955 Requested By: Kenton Tripp Order Number: [id number] MD: Jair Ryan Measurements Intervals [place] Rate: 94 P: 65 GA: 137 QRS: 58 QRSD: 133 T: 70 QT: 403 QTc: 505 Interpretive Statements Sinus rhythm Ventricular bigeminy Biatrial enlargement Nonspecific intraventricular conduction delay Nonspecific T abnrm, anterolateral leads Electronically Signed On 03-02-2021 12:59:01 CDT by Jair Ryan [email or web address] <ELECTRONICALLY SIGNED> By: Jair Ryan MD 03/02/21 1259 1529 1529 MD EARNEST Holm
== END 2021-03-01 21:52 | disposition home or self-care (01) ==
LOC: ER 15:27
PROVIDERS: Student in an Organized Health Care Education/Training Program
DX: M62.82 Rhabdomyolysis (principal); Z20.822 Contact with and (suspected) exposure to COVID-19; J44.9 Chronic obstructive pulmonary disease, unspecified; I10 Essential (primary) hypertension; F41.9 Anxiety disorder, unspecified; F32.9 Major depressive disorder, single episode, unspecified; F17.210 Nicotine dependence, cigarettes, uncomplicated; Z79.899 Other long term (current) drug therapy; Z90.89 Acquired absence of other organs; Z90.49 Acquired absence of other specified parts of digestive tract; Z88.9 Allergy status to unspecified drugs, medicaments and biological substances; W18.39XA Other fall on same level, initial encounter; Y93.89 Activity, other specified; Y92.89 Other specified places as the place of occurrence of the external cause; Y99.8 Other external cause status